=== PATIENT | female | born 2000 | race Two or more races ===

== ENCOUNTER 2022-08-20 21:33 | Emergency (ER) | payer MEDICAID, OTHER ==
[~2022-08-20] VITALS: Ht 162.6 cm; Wt 56.5 kg
[2022-08-21 00:03] LABS: Basophils # (auto) 0 10 ^3/uL (0-0.2); Basophils % (auto) 0.1 % (0.0-2.0); Eosinophils # (auto) 0 10 ^3/uL (0-0.8); Eosinophils % (auto) 0.3 % (0.0-7.0); Hematocrit 39.6 % (36.0-46.0); Hemoglobin 13.3 g/dL (12.2-16.2); Lymphocytes # (auto) 0.3 10 ^3/uL (0.4-5.4); Lymphocytes % (auto) 2.4 % (10.0-50.0); Mean Corpuscular Hemoglobin 27.4 pg (28.0-32.0); Mean Corpuscular Hgb Conc. 33.6 g/dL (32.0-36.0); Mean Corpuscular Volume 81.8 fL (80.0-100.0); Monocytes # (auto) 0.7 10 ^3/uL (0-1.3); Monocytes % (auto) 4.8 % (0.0-12.0); Neutrophils # (auto) 12.5 10 ^3/uL (1.6-8.6); Neutrophils % (auto) 92.4 % (37.0-80.0); Nucleated Red Blood Cells % 0.2 %; Red Blood Cells 4.84 10^6/uL (4.0-5.20); Red Cell Distribution Width 14.5 % (11.8-14.3); White Blood Cell 13.5 10^3/uL (4.4-10.8)
[2022-08-21 00:04] LABS: Albumin 3.9 g/dL (3.4-5.0); Calcium 8.5 mg/dL (8.5-10.1); Potassium 3.6 mmol/L (3.5-5.1)
[2022-08-21 00:07] LABS: Urine Bacteria NONE SEEN /hpf (None Seen); Urine Blood TRACE /uL (Negative); Urine Mucus FEW (None Seen); Urine Specific Gravity 1.036 (1.001-1.035); Urine WBC 2 /hpf (0 - 5)
[2022-08-21 00:09] LABS: Bilirubin, Total 0.5 mg/dL (0.2-1.0); Total Protein 7.8 g/dL (6.4-8.2)
[2022-08-21] MEDS ORDERED: IOHEXOL 300 MG/ML 100ML BOTTLE IJ ONE (00:36)
[2022-08-21] MEDS ORDERED: ONDANSETRON HCL 4 MG/2 ML VIAL IV ONE (04:30)
[2022-08-21] MEDS ORDERED: LACTATED RINGER'S 1,000 ML IV ONE (04:30)
[2022-08-21] MEDS ORDERED: MORPHINE SULFATE 4 MG/ML SYR/VIAL IV ONE (04:30)
[2022-08-21] MEDS ORDERED: METOCLOPRAMIDE HCL 5MG/ml INJ 2ml VIAL IV ONE (04:30)
[2022-08-21 08:15] VITALS: BP 90/49
== END 2022-08-21 08:15 | disposition home or self-care (01) ==
LOC: ER 21:33
DX: D72.829 Elevated white blood cell count, unspecified (principal); E86.0 Dehydration; R79.89 Other specified abnormal findings of blood chemistry
CPT/HCPCS: 36415; 74177; 80053; 81001; 84702; 85025; 96361; 96374; 96375; 99285; J2270; J2405; J2765; Q9967

== ENCOUNTER 2022-11-09 09:33 | Emergency (ER) | payer MEDICAID ==
[~2022-11-09] VITALS: Ht 162.6 cm; Wt 60.0 kg
[~2022-11-09 09:33] MED LIST: AZIT250T8 PO; LIDO2SOL23 MT
[2022-11-09] MEDS ORDERED: ONDANSETRON HCL 4 MG/2 ML VIAL IV ONE (09:45)
[2022-11-09] MEDS ORDERED: ONDANSETRON ODT 4 MG TAB PO ONE (10:00)
[2022-11-09 10:23] LABS: Basophils # (auto) 0.1 10 ^3/uL (0-0.2); Basophils % (auto) 0.7 % (0.0-2.0); Eosinophils # (auto) 0.3 10 ^3/uL (0-0.8); Eosinophils % (auto) 3.4 % (0.0-7.0); Hematocrit 36.1 % (36.0-46.0); Hemoglobin 12.1 g/dL (12.2-16.2); Lymphocytes # (auto) 2.1 10 ^3/uL (0.4-5.4); Lymphocytes % (auto) 28.4 % (10.0-50.0); Mean Corpuscular Hemoglobin 27.3 pg (28.0-32.0); Mean Corpuscular Hgb Conc. 33.5 g/dL (32.0-36.0); Mean Corpuscular Volume 81.5 fL (80.0-100.0); Monocytes # (auto) 0.3 10 ^3/uL (0-1.3); Monocytes % (auto) 3.6 % (0.0-12.0); Neutrophils # (auto) 4.8 10 ^3/uL (1.6-8.6); Neutrophils % (auto) 63.9 % (37.0-80.0); Red Blood Cells 4.44 10^6/uL (4.0-5.20); White Blood Cell 7.5 10^3/uL (4.4-10.8)
[2022-11-09 10:29] LABS: Albumin 3.4 g/dL (3.4-5.0); BUN/Creatinine Ratio 23.7; Calcium 8.5 mg/dL (8.5-10.1); Potassium 3.8 mmol/L (3.5-5.1)
[2022-11-09 10:32] LABS: Bilirubin, Total 0.4 mg/dL (0.2-1.0); Total Protein 6.8 g/dL (6.4-8.2)
[2022-11-09 10:45] LABS: Urine Bacteria NONE SEEN /hpf (None Seen); Urine Blood Negative /uL (Negative); Urine Specific Gravity 1.013 (1.001-1.035); Urine WBC 3 /hpf (0 - 5)
[2022-11-09] MEDS ORDERED: TRAM-297 PO (14:24)
[2022-11-09 15:00] VITALS: BP 110/70
== END 2022-11-09 15:02 | disposition home or self-care (01) ==
LOC: ER 09:33
DX: N83.201 Unspecified ovarian cyst, right side (principal); Z32.02 Encounter for pregnancy test, result negative
CPT/HCPCS: 36415; 74176; 76830; 76856; 80053; 81001; 81025; 83690; 85025; 99284; Q0162

== ENCOUNTER 2023-01-08 05:39 | Emergency (ER) | payer MEDICAID ==
[~2023-01-08] VITALS: Ht 162.6 cm; Wt 60.0 kg
[~2023-01-08 05:39] MED LIST changes: +TRAM-297 PO
[2023-01-08 06:37] LABS: Urine Bacteria FEW /hpf (None Seen); Urine Blood Negative /uL (Negative); Urine Mucus FEW (None Seen); Urine Specific Gravity 1.015 (1.001-1.035); Urine WBC 3 /hpf (0 - 5)
[2023-01-08 06:48] LABS: Basophils # (auto) 0.1 10 ^3/uL (0-0.2); Basophils % (auto) 0.8 % (0.0-2.0); Eosinophils # (auto) 0.1 10 ^3/uL (0-0.8); Hematocrit 36.2 % (36.0-46.0); Hemoglobin 12.2 g/dL (12.2-16.2); Lymphocytes # (auto) 1.8 10 ^3/uL (0.4-5.4); Lymphocytes % (auto) 27.8 % (10.0-50.0); Mean Corpuscular Hemoglobin 27.1 pg (28.0-32.0); Mean Corpuscular Hgb Conc. 33.6 g/dL (32.0-36.0); Mean Corpuscular Volume 80.6 fL (80.0-100.0); Monocytes # (auto) 0.3 10 ^3/uL (0-1.3); Monocytes % (auto) 5.1 % (0.0-12.0); Neutrophils # (auto) 4.1 10 ^3/uL (1.6-8.6); Neutrophils % (auto) 65.3 % (37.0-80.0); Nucleated Red Blood Cells % 0.1 %; Red Blood Cells 4.49 10^6/uL (4.0-5.20); Red Cell Distribution Width 13.5 % (11.8-14.3); White Blood Cell 6.3 10^3/uL (4.4-10.8)
[2023-01-08] MEDS ORDERED: LIDOCAINE VISCOUS 2% 15ML UD PO ONE (07:00)
[2023-01-08] MEDS ORDERED: MAALOX PLUS or MAALOX 30 ML PO ONE (07:00)
[2023-01-08] MEDS ORDERED: FAMOTIDINE 20 MG TAB PO ONE (07:00)
[2023-01-08] MEDS ORDERED: ONDANSETRON ODT 4 MG TAB PO ONE (07:00)
[2023-01-08] MEDS ORDERED: OMEP-434 PO (07:03)
[2023-01-08 07:09] LABS: Albumin 3.7 g/dL (3.4-5.0); Calcium 8.8 mg/dL (8.5-10.1); Potassium 3.9 mmol/L (3.5-5.1)
[2023-01-08 07:12] LABS: BUN/Creatinine Ratio 19.7 (10.0-20.0); Bilirubin, Total 0.4 mg/dL (0.2-1.0); Total Protein 6.8 g/dL (6.4-8.2)
[2023-01-08] MEDS ORDERED: DONNATAL 5ml ORAL Elix (BELLADONNA ALK-PHENOBARB) PO ONE (07:45)
[2023-01-08 08:05] VITALS: BP 103/72
== END 2023-01-08 08:17 | disposition home or self-care (01) ==
LOC: ER 05:39
DX: K21.9 Gastro-esophageal reflux disease without esophagitis (principal); R10.2 Pelvic and perineal pain; Z32.02 Encounter for pregnancy test, result negative; Z88.1 Allergy status to other antibiotic agents
CPT/HCPCS: 36415; 80053; 81001; 81025; 83690; 84702; 85025; 99284; Q0162

== ENCOUNTER 2023-01-23 08:32 | Emergency (ER) | payer MEDICAID ==
[~2023-01-23] VITALS: Ht 162.6 cm; Wt 61.9 kg
[~2023-01-23 08:32] MED LIST changes: +AZIT-81 PO; -AZIT250T8 PO; -LIDO2SOL23 MT; +LIDO2SOL26 MT; +OMEP-434 PO
[2023-01-23 09:01] VITALS: BP 105/70
[2023-01-23 09:27] LABS: Urine Bacteria FEW /hpf (None Seen); Urine Blood Negative /uL (Negative); Urine Mucus FEW (None Seen); Urine Specific Gravity 1.026 (1.001-1.035); Urine WBC 2 /hpf (0 - 5)
[2023-01-23] MEDS ORDERED: METH-1181 PO (09:54)
[2023-01-23] MEDS ORDERED: IBUP-1456 PO (09:54)
== END 2023-01-23 10:00 | disposition home or self-care (01) ==
LOC: ER 08:32
DX: M54.42 Lumbago with sciatica, left side (principal)
CPT/HCPCS: 81001

== ENCOUNTER 2023-01-26 23:28 | Emergency (ER) | payer MEDICAID ==
[~2023-01-26 23:28] MED LIST changes: +IBUP-1456 PO; +METH-1181 PO
== END 2023-01-26 23:41 | disposition left against medical advice (07) ==
LOC: ER 23:28
DX: M54.50 Low back pain, unspecified (principal); Z53.21 Procedure and treatment not carried out due to patient leaving prior to being seen by health care provider

== ENCOUNTER 2023-01-28 07:06 | Emergency (ER) | payer MEDICAID ==
[~2023-01-28] VITALS: Ht 162.6 cm; Wt 60.2 kg
[2023-01-28 07:39] VITALS: BP 107/58
[2023-01-28 07:47] LABS: Urine Bacteria NONE SEEN /hpf (None Seen); Urine Blood Negative /uL (Negative); Urine Mucus FEW (None Seen); Urine WBC 2 /hpf (0 - 5)
[2023-01-28] MEDS ORDERED: KETOROLAC TROMETH 30 MG/ML 1ML VIAL IV STA (08:24)
[2023-01-28] MEDS ORDERED: KETOROLAC TROMETH 60MG/2ML VIAL IM ONE (08:45)
== END 2023-01-28 09:51 | disposition home or self-care (01) ==
LOC: ER 07:06
DX: M54.42 Lumbago with sciatica, left side (principal); G89.29 Other chronic pain
CPT/HCPCS: 72100; 81001; 81025; 96372; 99284; J1885

== ENCOUNTER 2023-04-18 20:20 | Emergency (ER) | payer MEDICAID ==
[~2023-04-18] VITALS: Ht 162.6 cm; Wt 60.0 kg
[2023-04-18 21:24] LABS: Urine Bacteria NONE SEEN /hpf (None Seen); Urine Blood Negative /uL (Negative); Urine Clarity Clear (Clear); Urine Color Yellow (Yellow); Urine Mucus FEW (None Seen); Urine Protein, UAD TRACE (Negative); Urine Specific Gravity 1.034 (1.001-1.035); Urine Urobilinogen Normal (Negative); Urine WBC 2 /hpf (0 - 5); Urine pH 5.5 (5.0-8.0)
[2023-04-18 21:37] LABS: Basophils # (auto) 0 10 ^3/uL (0-0.2); Basophils % (auto) 0.5 % (0.0-2.0); Eosinophils # (auto) 0.1 10 ^3/uL (0-0.8); Eosinophils % (auto) 1.2 % (0.0-7.0); Hematocrit 37.9 % (36.0-46.0); Hemoglobin 12.8 g/dL (12.2-16.2); Lymphocytes % (auto) 27.8 % (10.0-50.0); Mean Corpuscular Hemoglobin 27.7 pg (28.0-32.0); Mean Corpuscular Hgb Conc. 33.8 g/dL (32.0-36.0); Monocytes # (auto) 0.5 10 ^3/uL (0-1.3); Monocytes % (auto) 6.3 % (0.0-12.0); Neutrophils # (auto) 4.7 10 ^3/uL (1.6-8.6); Neutrophils % (auto) 64.2 % (37.0-80.0); Nucleated Red Blood Cells % 0.1 %; Red Blood Cells 4.62 10^6/uL (4.0-5.20); Red Cell Distribution Width 14.6 % (11.8-14.3); White Blood Cell 7.3 10^3/uL (4.4-10.8)
[2023-04-18 21:58] LABS: Alanine Aminotransferase 36 U/L (7-40); Alkaline Phosphatase 77 U/L (46-116); Anion Gap 6.9 (5-15); Aspartate Aminotransferase 15 U/L (13-40); BUN/Creatinine Ratio 14.8 (10.0-20.0); Blood Urea Nitrogen 13 mg/dL (9-23); Calcium 9.3 mg/dL (8.5-10.1); Carbon Dioxide 23.1 mmol/L (20-30); Chloride 111 mmol/L (98-107); Glucose 97 mg/dL (74-106); Sodium 141 mmol/L (136-145)
[2023-04-18 21:59] LABS: Albumin 4.4 g/dL (3.2-4.8); Bilirubin, Total 0.7 mg/dL (0.2-1.0); Total Protein 7.6 g/dL (5.7-8.2)
[2023-04-18] MEDS ORDERED: ZOFR4T PO (22:05)
[2023-04-18] MEDS ORDERED: HYDR25CA PO (22:05)
[2023-04-18] MEDS ORDERED: LORazepam 0.5 MG TAB PO ONE (22:15)
[2023-04-18] MEDS ORDERED: ONDANSETRON ODT 4 MG TAB PO ONE (22:15)
[2023-04-18 22:58] VITALS: BP 108/68; PULSE 73; RESP 18; TEMP 98.7; O2SAT 100
[2023-04-19] MEDS ORDERED: METR375C PO (13:33)
== END 2023-04-18 22:59 | disposition home or self-care (01) ==
LOC: ER 20:20
DX: R11.0 Nausea (principal); F41.9 Anxiety disorder, unspecified; Z79.1 Long term (current) use of non-steroidal anti-inflammatories (NSAID); Z79.899 Other long term (current) drug therapy
CPT/HCPCS: 36415; 80053; 81001; 81025; 85025; 99283; Q0162

== ENCOUNTER 2023-04-19 10:55 | Emergency (ER) | payer MEDICAID ==
[~2023-04-19] VITALS: Ht 162.6 cm; Wt 59.4 kg
[~2023-04-19 10:55] MED LIST changes: +HYDR25CA PO; +ZOFR4T PO
[2023-04-19 11:55] LABS: Basophils # (auto) 0.1 10 ^3/uL (0-0.2); Basophils % (auto) 1.1 % (0.0-2.0); Eosinophils # (auto) 0 10 ^3/uL (0-0.8); Eosinophils % (auto) 0.3 % (0.0-7.0); Hematocrit 39.2 % (36.0-46.0); Hemoglobin 13.2 g/dL (12.2-16.2); Lymphocytes # (auto) 1.4 10 ^3/uL (0.4-5.4); Mean Corpuscular Hemoglobin 27.6 pg (28.0-32.0); Mean Corpuscular Hgb Conc. 33.6 g/dL (32.0-36.0); Monocytes # (auto) 0.2 10 ^3/uL (0-1.3); Monocytes % (auto) 3.3 % (0.0-12.0); Neutrophils # (auto) 5.1 10 ^3/uL (1.6-8.6); Neutrophils % (auto) 74.3 % (37.0-80.0); Nucleated Red Blood Cells % 0.1 %; Red Blood Cells 4.77 10^6/uL (4.0-5.20); Red Cell Distribution Width 14.8 % (11.8-14.3); White Blood Cell 6.8 10^3/uL (4.4-10.8)
[2023-04-19 11:57] LABS: Urine Bacteria NONE SEEN /hpf (None Seen); Urine Blood Negative /uL (Negative); Urine Clarity HAZY (Clear); Urine Color Yellow (Yellow); Urine Mucus FEW (None Seen); Urine Protein, UAD TRACE (Negative); Urine Specific Gravity 1.031 (1.001-1.035); Urine Urobilinogen Normal (Negative); Urine WBC 3 /hpf (0 - 5); Urine pH 5.5 (5.0-8.0)
[2023-04-19 12:20] LABS: Alanine Aminotransferase 34 U/L (7-40); Albumin 4.6 g/dL (3.2-4.8); Alkaline Phosphatase 80 U/L (46-116); Anion Gap 7.5 (5-15); Aspartate Aminotransferase 18 U/L (13-40); BUN/Creatinine Ratio 17.7 (10.0-20.0); Bilirubin, Total 0.9 mg/dL (0.2-1.0); Blood Urea Nitrogen 14 mg/dL (9-23); Calcium 9.5 mg/dL (8.5-10.1); Carbon Dioxide 22.5 mmol/L (20-30); Chloride 110 mmol/L (98-107); Glucose 122 mg/dL (74-106); Potassium 3.6 mmol/L (3.5-5.1); Sodium 140 mmol/L (136-145); Total Protein 7.9 g/dL (5.7-8.2)
[2023-04-19] MEDS ORDERED: SODIUM CHLORIDE 0.9% 1,000 ML IV ONE (12:45)
[2023-04-19] MEDS ORDERED: ONDANSETRON HCL 4 MG/2 ML VIAL IV ONE (12:45)
[2023-04-19] MEDS ORDERED: metroNIDAZOLE 500MG/100ML 100 ML IV ONE (13:30)
[2023-04-19] MEDS ORDERED: METR375C PO (13:33)
[2023-04-19 14:03] VITALS: BP 105/65; PULSE 65; RESP 18; TEMP 97.2; O2SAT 100
== END 2023-04-19 14:43 | disposition home or self-care (01) ==
LOC: ER 10:55
DX: K52.9 Noninfective gastroenteritis and colitis, unspecified (principal); R10.2 Pelvic and perineal pain; F41.9 Anxiety disorder, unspecified; F32.9 Major depressive disorder, single episode, unspecified
CPT/HCPCS: 36415; 74176; 80053; 81001; 84702; 85025; 96365; 96375; 99285; J2405; J3490; J7030

== ENCOUNTER 2023-05-11 12:03 | Emergency (ER) | payer MEDICAID ==
[~2023-05-11] VITALS: Ht 162.6 cm; Wt 63.0 kg
[~2023-05-11 12:03] MED LIST changes: +METR375C PO
[2023-05-11] MEDS ORDERED: CYCL-839 PO (20:09)
[2023-05-11] MEDS ORDERED: HYDR-4902 PO (20:09)
[2023-05-11] MEDS ORDERED: KETOROLAC TROMETH 60MG/2ML VIAL IM ONE (20:15)
[2023-05-11] MEDS ORDERED: HYDROcodone-ACET 5/325MG TAB PO ONE (20:15)
[2023-05-11] MEDS ORDERED: ONDANSETRON ODT 4 MG TAB PO ONE (20:15)
[2023-05-11] MEDS ORDERED: DexAMETHasone SOD PHOS 10MG/1ML VIAL INJ IM ONE (20:15)
[2023-05-11 20:23] VITALS: BP 103/48; PULSE 74; RESP 20; TEMP 98.4; O2SAT 99
== END 2023-05-11 20:37 | disposition home or self-care (01) ==
LOC: ER 12:03
DX: S29.012A Strain of muscle and tendon of back wall of thorax, initial encounter (principal); G89.29 Other chronic pain; M54.40 Lumbago with sciatica, unspecified side; X58.XXXA Exposure to other specified factors, initial encounter; Y93.01 Activity, walking, marching and hiking; Y92.89 Other specified places as the place of occurrence of the external cause; Y99.8 Other external cause status
CPT/HCPCS: 72070; 72100; 96372; 99284; J1100; J1885; Q0162

== ENCOUNTER 2023-06-12 08:40 | Emergency (ER) | payer MEDICAID ==
[~2023-06-12] VITALS: Ht 162.6 cm; Wt 63.3 kg
[~2023-06-12 08:40] MED LIST changes: +CYCL-839 PO; +HYDR-4902 PO
[2023-06-12 09:27] VITALS: BP 113/98; PULSE 74; RESP 16; TEMP 98.6; O2SAT 96
[2023-06-12 09:38] LABS: Urine Bacteria NONE SEEN /hpf (None Seen); Urine Blood Negative /uL (Negative); Urine Clarity Clear (Clear); Urine Color Yellow (Yellow); Urine Mucus FEW (None Seen); Urine Protein, UAD Negative (Negative); Urine Specific Gravity 1.029 (1.001-1.035); Urine Urobilinogen Normal (Negative); Urine WBC 3 /hpf (0 - 5); Urine pH 5.5 (5.0-8.0)
[2023-06-12] MEDS ORDERED: PHEN-922 PO (10:05)
[2023-06-12] MEDS ORDERED: BACDST PO (10:05)
== END 2023-06-12 10:08 | disposition home or self-care (01) ==
LOC: ER 08:40
DX: R30.9 Painful micturition, unspecified (principal); R39.15 Urgency of urination; R35.0 Frequency of micturition; F41.9 Anxiety disorder, unspecified; F32.9 Major depressive disorder, single episode, unspecified; Z79.1 Long term (current) use of non-steroidal anti-inflammatories (NSAID); Z79.899 Other long term (current) drug therapy
CPT/HCPCS: 81001; 81025